=== PATIENT | male | born 1950 | race Caucasian/White ===

== ENCOUNTER → 2019-08-11 | Outpatient (CLI) | payer OTHER | LOC: SJCVCIMAG 10:17 | PROVIDERS: ATTEND Internal Medicine Cardiovascular Disease | DX: I25.10 Atherosclerotic heart disease of native coronary artery without angina pectoris (principal); E78.5 Hyperlipidemia, unspecified ==

== ENCOUNTER → 2020-04-11 | Outpatient (CLI) | payer OTHER | LOC: SJCVC 14:02 | PROVIDERS: ATTEND Internal Medicine Cardiovascular Disease | DX: R94.31 Abnormal electrocardiogram [ECG] [EKG] (principal); I45.10 Unspecified right bundle-branch block; R93.1 Abnormal findings on diagnostic imaging of heart and coronary circulation; I25.10 Atherosclerotic heart disease of native coronary artery without angina pectoris; E78.00 Pure hypercholesterolemia, unspecified; M17.12 Unilateral primary osteoarthritis, left knee; E78.2 Mixed hyperlipidemia; Z86.010 Personal history of colon polyps; Z79.899 Other long term (current) drug therapy ==

== ENCOUNTER 2021-01-31 09:05 | Day surgery (SDC) | payer OTHER ==
[~2021-01-31] VITALS: Ht 180.3 cm; Wt 83.0 kg
[~2021-01-31 09:05] MED LIST: COSOPT OCUMETER10 M1 OPHTHALMIC; LUMIGAN2.5 M1 OPHTHALMIC; PRAVACHOL40 MG PO; TAMSULOSIN HCL0.4 MG PO
[2021-01-31 14:16] VITALS: BP 127/82
[2021-01-31 17:26] VITALS: BP 134/78
--- NOTE | 2021-01-31 18:32 | NUR ---
ASSUMED PT CARE FROM PACU AT 1725. PT IS ALERT & ORIENTED X4. PT HAS IV SITE ON LAC 20 GAUGE SALINE LOCKED. PT IS ON ROOM AIR. PT HAS SLEEP APNEA AND USES CPAP AT HOME. FINISHED ADMISSION. PT HAS LAP HERNIA REPAIR TODAY WITH 8 LAP SITES WITH STERISTRIPS AND ICE PACK. GIVEN PAIN MEDICATION PER PT REQUEST. PT AT THE BEDSIDE. PT TOLERATED DIET WELL. WILL CONTINUE TO MONITOR PT. FOLLOW POC.
[2021-01-31 20:01] VITALS: BP 120/69
--- NOTE | 2021-01-31 23:53 | NUR ---
ASSESSSMENT COMPLETED. PT IS ALERT AND ORIENTED.HUGHES.OBS. DENIES NAUSEA OR VOMITING. WALKED TO THE BATHROO. LAP SITES X 8.ONE LAP SITE ON LEFT UPPER STOMACH IS BLEEDING. PT C/O 710 PAIN, GIVEN NORCO.HE ALSO HAS AN ICE SHANNON IN PLACE. HE IS ON ROOM AIR. VOIDING OKAY.
[2021-02-01 07:25] VITALS: BP 110/68
--- NOTE | 2021-02-01 10:45 | NUR ---
ASSUMED PT CARE THIS AM. PT IS ALERT & ORIENTED X4. PT HAS IV SITE ON LAC SALINE LOCKED. PT IS UP AD YUNI. PT RATED PAIN 1/10 ON ABDOMEN THIS AM. PT IS ON ROOM AIR. PT HAS 8 LAP SITES WITH STERI STRIPS AND SCD. PT AT THE BEDSIDE. AWAITING FOR DC ORDERS. WILL CONTINUE TO [facility] PT. FOLLOW POC.
--- NOTE | 2021-02-01 11:37 | NUR ---
Pt dcing home today. Indep and has support at home. He denies any dc needs. Cm role introduced. Case discussed with the care team. No cm interventions indicated at this time. Case not opened.
[2021-02-01] MEDS ORDERED: COLACE 100 MG100 MG PO (12:36)
[2021-02-01] MEDS ORDERED: MIRALAX17 GM PO (12:36)
[2021-02-01] MEDS ORDERED: HYDROCODON-ACE1 EAC7 PO ×2 (12:36→20:04)
[2021-02-01 13:07] VITALS: BP 110/68
== END 2021-02-01 13:30 | disposition home or self-care (01) ==
LOC: 4S 09:05 → OR 09:05 → TBA 09:09 → OR 11:53 → 4S 17:13 → OR 02-01 13:30
PROVIDERS: ATTEND Surgery
DX: K40.21 Bilateral inguinal hernia, without obstruction or gangrene, recurrent (principal); K43.2 Incisional hernia without obstruction or gangrene; D17.6 Benign lipomatous neoplasm of spermatic cord; E78.5 Hyperlipidemia, unspecified; M19.90 Unspecified osteoarthritis, unspecified site; E78.00 Pure hypercholesterolemia, unspecified; G47.30 Sleep apnea, unspecified; Z98.890 Other specified postprocedural states; Z79.899 Other long term (current) drug therapy; Z85.820 Personal history of malignant melanoma of skin; Z20.822 Contact with and (suspected) exposure to COVID-19; Z90.49 Acquired absence of other specified parts of digestive tract
CPT/HCPCS: 50010; 50101; 50411; 50455; 50555; 50854; 50979; 50984; 52265; 52266; 53307; 53310; 54022; 54118; 56462; 56525; 56526; 56530; 58574; 58911; 62110; 62900; 70005

== ENCOUNTER → 2021-04-22 | Outpatient (CLI) | payer OTHER ==
[~2021-04-22] MED LIST changes: +COLACE 100 MG100 MG PO; +HYDROCODON-ACE1 EAC7 PO; +MIRALAX17 GM PO
== END ==
LOC: SJCVC 13:53
PROVIDERS: ATTEND Internal Medicine Cardiovascular Disease
DX: R94.31 Abnormal electrocardiogram [ECG] [EKG] (principal); I45.10 Unspecified right bundle-branch block; I25.2 Old myocardial infarction; R93.1 Abnormal findings on diagnostic imaging of heart and coronary circulation; E78.00 Pure hypercholesterolemia, unspecified; I25.10 Atherosclerotic heart disease of native coronary artery without angina pectoris; K46.9 Unspecified abdominal hernia without obstruction or gangrene; E78.5 Hyperlipidemia, unspecified; Z79.82 Long term (current) use of aspirin; Z79.899 Other long term (current) drug therapy